=== PATIENT | male | born 1980 | race Caucasian/White ===

== ENCOUNTER 2024-04-25 12:10 | Emergency (ER) | payer SELFPAY ==
[2024-04-25 12:25] VITALS: BP 165/109
[2024-04-25 12:51] LABS: % Basophils 0.6 % (0-2); % Eosinophils 2.6 % (0-6); % Immature Granulocytes 0.5 % (0-0.5); % Monocytes 5.1 % (1.7-9.3); % Neutrophils 68.2 % (42.2-75.2); Absolute Basophils 0.1 10^3/uL (0-0.2); Absolute Eosinophils 0.2 10^3/uL (0-0.7); Absolute Monocytes 0.4 10^3/uL (0.1-0.6); Absolute Neutrophils 5.9 10^3/uL (1.4-6.5); Hematocrit 43.1 % (39.0-52.0); Hemoglobin 15.2 g/dL (13.0-18.0); Mean Corp Hgb Conc. 35.3 g/dL (33.0-37.0); Mean Corpuscular Hgb 30.9 pg (27.0-31.0); Mean Corpuscular Volume 87.6 fL (80.0-94.0); Mean Platelet Volume 10.2 fL (7.4-10.4); Nucleated Red Blood Cells % 0 % (-); Platelet Count 257 10^3/uL (130-400); Red Blood Cell Count 4.92 10^6/uL (4.70-6.10); Red Cell Dist. Width 12.6 % (11.5-14.5); White Blood Cell Count 8.6 10^3/uL (4.8-10.8)
[2024-04-25 13:14] LABS: ALT (SGPT) 28 U/L (0-50); AST (SGOT) 29 U/L (17-59); Albumin 4.5 g/dl (3.5-5.0); Alkaline Phosphatase 80 U/L (38-126); Blood Urea Nitrogen 16 mg/dl (9-20); Calcium 9.4 mg/dl (8.4-10.2); Carbon Dioxide 23 mmol/L (22-30); Chloride 103 mmol/L (98-107); Glucose 112 mg/dl (70-99); Potassium 4.2 mmol/L (3.5-5.1); Sodium 137 mmol/L (135-145); Total Bilirubin 0.7 mg/dl (0.2-1.3); Total Protein 7.2 g/dl (6.3-8.2); eGFR > 60.00
[2024-04-25 13:23] LABS: Troponin I < 0.012 ng/ml
--- NOTE | 2024-04-25 15:27 | ED.GENMED ---
History of Present Illness
General
Chief Complaint: Dizziness
Time Seen by Provider: 04/25/24 15:24
Travel History
Have you had any contact with someone who has COVID-19?: No
Do you have any symptoms of coronavirus? Fever > 100 degrees, chills, cough, shortness of breath, sore throat, loss of taste or smell, muscle aches, or headache?: No
History of Present Illness
History of Present Illness:
43-year-old male presents to the emergency department for evaluation of intermittent periods of lightheadedness and heart palpitations ongoing for the past 2 weeks. He has been checking his blood pressure at home on a daily basis with a wrist cuff
and has been noting numbers of 160/100 or higher. He denies any chest pain or difficulty breathing. Does not routinely seek routine or preventative health care. Does admit to tobacco use heavy social alcohol use. Denies any precocious coronary
artery disease or cardiac to his knowledge. Currently feels well with no complaints
Past History
Past History
ED Past Medical History: Asthma
ED Past Surgical History: None
Social History
Tobacco: Smoker
Alcohol: Occasional
Drug: None
Personal: Single
Living: alone
Review of Systems
Review of Systems
Allergies reviewed?: Yes
All Other Systems: ROS reviewed and negative except as documented in HPI and ROS
Phy Exam
Physical Exam
Physical Exam:
GEN: Well appearing, NAD, WDWN
HEENT: Oral mucosa moist, no scleral icterus
Cardiac: Regular rate and rhythm, no murmurs
Lung: No respiratory distress, no tachypnea, lungs clear to auscultation bilaterally
MSK: No gross deformity or injuries
Skin: Good color, no pallor or jaundice, no rashes
Neuro: AO x3, moves all extremities freely
Psych: Calm, cooperative
Course
Orders/Labs/Results
Orders:
Orders
04/25/24 12:26
Electrocardiogram (*1) Urgent
Reason for Study: Vertigo / Dizzy
EKG- Treatment ONCE
04/25/24 12:38
Complete Blood Count/With Diff Urgent
Comprehensive Metabolic Panel Urgent
Troponin I Urgent
Abnormal Lab Results
04/25/24
12:38
Glucose 112 H mg/dl
(70-99)
04/25/24 12:38
04/25/24 12:38
Vital Signs
Initial and Last Documented VS:
Initial Vital Signs
Temp Pulse Resp BP Pulse Ox
98.0 F 97 18 165/109 99
04/25/24 12:25 04/25/24 12:25 04/25/24 12:25 04/25/24 12:25 04/25/24 12:25
Last Documented Vital Signs
Temp Pulse Resp BP Pulse Ox
98.0 F 97 18 156/113 99
04/25/24 12:25 04/25/24 12:25 04/25/24 12:25 04/25/24 15:41 04/25/24 12:25
MDM/Problems Addressed
MDM/Problems Addressed:
43-year-old male presenting with intermittent dizziness and hypertension. His labs and EKG are unremarkable and there is no evidence for endorgan damage. Patient has no signs or symptoms of stroke. I counseled him extensively on importance of
tobacco and alcohol cessation or at least diminished use to reduce future risk of cardiovascular disease. Given the persistence of his hypertension at home I feel it is likely that he has been hypertensive for some time and we will start him on
amlodipine once daily. He is currently uninsured and I provided him with resources for an [facility] as well as with the family medicine residency clinic for when he is able to establish health insurance. Educated on
importance of medication compliance and lifestyle modifications
*Critical Care Note
Total Time (30-74mins, 75-104mins- exclusive of procedures): Not Applicable
ED Attending Note
-
Portions of this chart may have been created with voice recognition software.� Occasional wrong word or��sound alike� substitutions may have occurred due to the inherent limitations of voice recognition software.
Discharge Plan
Departure
Patient Disposition: Home (Routine Discharge)
Date of Disposition: 04/25/24
Time of Disposition: 15:42
Patient with high blood pressure during this ER visit?: Yes
Discharge Problem:
Uncontrolled hypertension
Instructions: High Blood Pressure ED
Prescriptions:
New
amlodipine 5 mg tablet
5 mg PO DAILY Qty: 30 0RF
Activity Restrictions/Additional Instructions:
I am starting you on blood pressure medication. It is possible this will need to be increased by her primary care physician at a later time if blood pressures not improving
We discussed the importance of quitting tobacco use and decreasing her alcohol use as both of these will cause high blood pressure and can lead to serious outcomes such as heart attack or stroke
Please discuss with your primary care physician medication assisted remedies for quitting tobacco use
[facility] (must have insurance)
[address]
[place] [address]
[phone]
[facility] (if uninsured)
[phone]
[address]
[place] [address]
Discharge Date and Time
Print Language: URDU
[2024-04-25 15:41] VITALS: BP 156/113
== END 2024-04-25 16:18 | disposition home or self-care (01) ==
LOC: EMR 12:10
PROVIDERS: Emergency Medicine; EMERGENCY PHYSICIAN Emergency Medicine
DX: I10 Essential (primary) hypertension (principal); R42 Dizziness and giddiness; R00.2 Palpitations; J45.909 Unspecified asthma, uncomplicated; F17.200 Nicotine dependence, unspecified, uncomplicated
CPT/HCPCS: 99283; 80053; 84484; 85025; 93005

== ENCOUNTER 2024-10-16 20:22 | Inpatient (IN) | payer OTHER, SELFPAY ==
[2024-10-16] VITALS (9 sets, daily range): BP systolic 120–154; BP diastolic 71–97; BMI 25.8
[2024-10-16] MEDS: MAGNESIUM SULFATE 50 IV (17:08)
[2024-10-16] MEDS: SOLU-MEDROL PF 125 MG IV (17:08)
[2024-10-16 17:18] LABS: % Basophils 0.4 % (0-2); % Eosinophils 1.2 % (0-6); % Immature Granulocytes 0.5 % (0-0.5); % Lymphocytes 4.7 % (20.5-51.1); % Monocytes 5.5 % (1.7-9.3); % Neutrophils 87.7 % (42.2-75.2); Absolute Basophils 0.1 10^3/uL (0-0.2); Absolute Eosinophils 0.2 10^3/uL (0-0.7); Absolute Immature Granulocytes 0.1 10^3/uL (0-0.05); Absolute Lymphocytes 0.6 10^3/uL (1.2-3.4); Absolute Monocytes 0.7 10^3/uL (0.1-0.6); Absolute Neutrophils 10.8 10^3/uL (1.4-6.5); Hematocrit 42.8 % (39.0-52.0); Hemoglobin 14.3 g/dL (13.0-18.0); Mean Corp Hgb Conc. 33.4 g/dL (33.0-37.0); Mean Corpuscular Volume 89.9 fL (80.0-94.0); Mean Platelet Volume 10.6 fL (7.4-10.4); Nucleated Red Blood Cells % 0 % (-); Platelet Count 222 10^3/uL (130-400); Red Blood Cell Count 4.76 10^6/uL (4.70-6.10); Red Cell Dist. Width 12.1 % (11.5-14.5); White Blood Cell Count 12.3 10^3/uL (4.8-10.8)
[2024-10-16 17:27] LABS: ALT (SGPT) 31 U/L (0-50); AST (SGOT) 24 U/L (17-59); Albumin 4.9 g/dl (3.5-5.0); Alkaline Phosphatase 102 U/L (38-126); Blood Urea Nitrogen 15 mg/dl (9-20); Calcium 9.2 mg/dl (8.4-10.2); Carbon Dioxide 24 mmol/L (22-30); Chloride 101 mmol/L (98-107); Estimated Creatinine Clearance > 125 ml/min; Glucose 139 mg/dl (70-99); Potassium 3.4 mmol/L (3.5-5.1); Sodium 143 mmol/L (135-145); Total Bilirubin 0.5 mg/dl (0.2-1.3); Total Protein 7.6 g/dl (6.3-8.2); eGFR > 60.00
[2024-10-16 17:28] LABS: COVID-19 Antigen Negative (Negative)
--- NOTE | 2024-10-16 17:28 | ED.GENMED ---
History of Present Illness
General
Chief Complaint: Breathing Problem
Time Seen by Provider: 10/16/24 16:56
History of Present Illness
History of Present Illness:
43-year-old male with history of asthma presenting to the emergency department for cough and shortness of breath. Patient reports symptoms started yesterday. He tried using his inhaler without significant improvement. Cough has been productive,
does note sick contacts at home, everyone at home has similar cough. Denies any admissions or intubations for his asthma. Per medics, patient was hypoxic, arrived hypoxic to the high 80s on arrival. Denies associated chest pain. Denies any
fever. Denies abdominal pain or GI symptoms. Denies additional acute medical complaints.
Past History
Past History
ED Past Medical History: Asthma
ED Past Surgical History: None
Social History
Tobacco: Smoker
Alcohol: Occasional
Drug: None
Personal: Single
Living: alone
Phy Exam
Physical Exam
Physical Exam:
General: Mild respiratory distress
HEENT: protecting airway
Neck: appears supple
CV: Tachycardic, regular rhythm, no evidence of cyanosis
Resp: Mild increased work of breathing, adequate air movement bilaterally with end expiratory wheezing
Abd: No distention
Extremities: No deformities, no swelling, no erythema, pulses and sensation intact
Neuro: alert, no focal neurologic deficit
: deferred
Rectal: deferred
Psych: Normal affect
Skin: Intact
Course
Orders/Labs/Results
Orders:
Orders
10/16/24 Breakfast
Cholesterol Lowering
Cholesterol Lowering: Sodium, 2 Gram
10/16/24 17:00
Magnesium Sulfate 2 Gram/50 ml [Magnesium Sulfate] 2 gram in 50 ml IV NOW
MethylPREDNISolone PF [Solu-Medrol Pf] 125 mg IV NOW STA
CR Chest - 2 Views Urgent
Comment:
Reason For Exam: asthma
10/16/24 17:01
INT (Intravenous Needle Therapy) As Directed
Comment: Insert and maintain 2 IV access sites
10/16/24 17:05
COVID-19 Antigen Urgent
Source: Nasal Swab
Complete Blood Count/With Diff Urgent
Comprehensive Metabolic Panel Urgent
Influenza A+B Rapid Molecular Urgent
ROLAN Source: Nasal Swab
Specimen Description:
10/16/24 17:32
Ipratropium/Albuterol Sulfate [Duoneb] 3 ml INH R NOW STA
10/16/24 19:34
Potassium Chloride 10% Elixir [KCl Elixir] 40 meq PO NOW STA
10/16/24 19:39
Admit/Transfer Patient As Directed
Co-Sign Provider:
Level of Care: Inpatient admission
Assign to:: IMU- Intermediate Care
Physician / Group: finesse
Diagnosis: asthma exacerbation
Reason for Hospitalization: asthma exacerbation
Expected length of stay greater than two midnights?: Yes
ELOS- Estimated Length of Stay in days: 3
I certify the patient meets the requirements for IP care: Yes
PRN Pain Medication Management As Directed
May give lesser potent ordered pain med per pt: Yes
preference::
Protocol:: Medication orders for pain may be administered in a
manner that supports deferring to patient preference
when the pt is:
- Requesting an ordered lesser potent pain medication.
Least to most potent pain medications are defined
as: acetaminophen < NSAID < tramadol < opioids
(morphine, oxycodone, hydromorphone).
- Requesting a lesser dose of the same medication IF
ORDERED.
- Requesting a less intrusive route of administration
if both routes are prescribed by the provider (PO <
IV).
10/16/24 19:40
Code Status As Directed
Resuscitation Status: Full Code
10/16/24 20:05
Ipratropium/Albuterol Sulfate [Duoneb] 3 ml INH R NOW ONE
PRN Pain Medication Management As Directed
May give lesser potent ordered pain med per pt: Yes
preference::
Protocol:: Medication orders for pain may be administered in a
manner that supports deferring to patient preference
when the pt is:
- Requesting an ordered lesser potent pain medication.
Least to most potent pain medications are defined
as: acetaminophen < NSAID < tramadol < opioids
(morphine, oxycodone, hydromorphone).
- Requesting a lesser dose of the same medication IF
ORDERED.
- Requesting a less intrusive route of administration
if both routes are prescribed by the provider (PO <
IV).
10/16/24 20:08
Ipratropium/Albuterol Sulfate [Duoneb] 3 ml .ROUTE .STK-MED ONE
10/16/24 20:59
Acetaminophen [Tylenol] 650 mg PO Q4HPRN PRN
Alprazolam [Xanax] 0.25 mg PO TIDPRN PRN
Guaifenesin [Mucinex] 600 mg PO Q12
Ipratropium/Albuterol Sulfate [Duoneb] 3 ml INH R Q4HPRN PRN
Ipratropium/Albuterol Sulfate [Duoneb] 3 ml INH R QID
10/16/24 20:59
Respiratory Culture/Gram Stain Routine
ROLAN Source: Sputum
Specimen Description:
Activity As Directed
Activity Level: As Tolerated
Intake/ Output As Directed
Frequency: Per unit guidelines
Vital Signs As Directed
Frequency: Per unit guidelines
Copd Education [RESP] Routine
O2 Therapy [RESP] Routine
Titrate/Wean O2 to maintain O2 sat greater than (%): 95
Special Instructions: adjust, if necessary, to avoid hyperoxia in CO2 retainers.
Use High Flow O2 if necessary
DX Deep Vein Thrombosis Video Routine
10/16/24 22:00
Amlodipine [Norvasc] 10 mg PO HS
Escitalopram Oxalate [Lexapro] 10 mg PO HS
Olmesartan Medoxomil [Benicar] 5 mg PO HS
10/17/24 00:00
Dexamethasone Sod Phosphate [Decadron] 4 mg IV Q6H
10/17/24 06:00
Basic Metabolic Panel IN AM
Complete Blood Count/With Diff IN AM
10/17/24 18:00
Enoxaparin Sodium [Lovenox] 40 mg SC QPM
10/18/24 06:00
Basic Metabolic Panel IN AM
Complete Blood Count/With Diff IN AM
10/19/24 06:00
Basic Metabolic Panel IN AM
Complete Blood Count/With Diff IN AM
10/20/24 06:00
Complete Blood Count/With Diff IN AM
Abnormal Lab Results
10/16/24
17:05
WBC 12.3 H 10^3/uL
(4.8-10.8)
MPV 10.6 H fL
(7.4-10.4)
Abs Immat Gran (auto) 0.1 H 10^3/uL
(0-0.05)
Absolute Neuts (auto) 10.8 H 10^3/uL
(1.4-6.5)
Absolute Lymphs (auto) 0.6 L 10^3/uL
(1.2-3.4)
Absolute Monos (auto) 0.7 H 10^3/uL
(0.1-0.6)
Neutrophils % 87.7 H %
(42.2-75.2)
Lymphocytes % 4.7 L %
(20.5-51.1)
Potassium 3.4 L mmol/L
(3.5-5.1)
Glucose 139 H mg/dl
(70-99)
10/16/24 17:05
10/16/24 17:05
Vital Signs
Initial and Last Documented VS:
Initial Vital Signs
BP
128/82
10/16/24 16:52
Last Documented Vital Signs
Temp Pulse Resp BP Pulse Ox
98.8 F 91 21 151/90 96
10/16/24 16:53 10/16/24 20:15 10/16/24 20:15 10/16/24 20:00 10/16/24 20:15
MDM/Problems Addressed
MDM/Problems Addressed:
43-year-old male with history of asthma presenting for cough and wheezing, onset of symptoms yesterday. Vital signs on arrival significant for tachycardia and hypoxia.
On exam, patient in mild respiratory distress with mild increased work of breathing. Symptoms appear consistent with acute asthma exacerbation, likely triggered from viral versus bacterial pulmonary infection. PE is a consideration given
presenting vital signs, however less suspicious given known history of asthma with presenting wheezing. Will treat patient with DuoNeb, steroids, magnesium. Will obtain chest x-ray imaging and reassess for improvement. Will also send viral swabs
18:30 -workup is grossly unremarkable. No sign of pneumonia. Viral swabs are negative. Patient does note symptom improvement, however is still feeling short of breath. Stable on nasal cannula, however when nasal cannula removed, does have
desaturation. At this time feel patient warrants admission for acute asthma exacerbation.
*Critical Care Note
Total Time (30-74mins, 75-104mins- exclusive of procedures): Not Applicable
ED Attending Note
-
Portions of this chart may have been created with voice recognition software.� Occasional wrong word or��sound alike� substitutions may have occurred due to the inherent limitations of voice recognition software.
Discharge Plan
Departure
Patient Disposition: Admit
Date of Disposition: 10/16/24
Time of Disposition: 19:18
Presentation/result/management discussed w/ accepting MD/DO: Hospitalist
Patient with high blood pressure during this ER visit?: No
Condition: Fair
Discharge Problem:
Asthma exacerbation, Hypoxia
Interventions
Interventions:
*Risk Screen - Suicide Last Done: 10/16/24 16:53
*General Assessment Last Done: 10/16/24 16:53
*Neglect/Abuse Screening Last Done: 10/16/24 16:53
ED- Fall Risk Assessment Last Done: 10/16/24 20:53
*ED COVID-19 Vaccine History Last Done: 10/16/24 17:15
*Nursing Disposition Last Done: 10/16/24 20:53
ED- Cardiac Assessment Last Done: 10/16/24 17:15
ED- Pulmonary Assessment Last Done: 10/16/24 17:15
Discharge Date and Time
Discharge Date/Time: 10/16/24 20:54
[2024-10-16] MEDS: DUONEB 3 ML INH ×3 (17:37→23:35)
--- NOTE | 2024-10-16 19:22 | HPS.HSE ---
Family Physician
-
Family Physician: Hai Mcdaniel
Chief Complaint
-
Short of breath
History of Present Illness
43-year-old male with history of asthma hypertension, anxiety presenting to the emergency department for cough and shortness of breath. Patient noted sore throat yesterday. Today he had cough with productive white sputum and short of breath which
was worse with exertion .He tried using his inhaler without significant improvement. denied any fever, chills, chest pain. Patient denied any headache, dizziness, syncopal episode. Patient denied dysuria hematuria. Denies any admissions or
intubations for his asthma.
upon arrival he was hypoxic, requiring 3l of oxygen. received iv solu Medrol, nebs .admitting for further management.
Medical History
Past Medical History
Past Medical History: Reports Other
Additional Past Medical History:
asthma
HTn
anixiety
Past Surgical History: Reports None
Social History
Tobacco: Former Smoker
Alcohol: Occasional
Drug: None
Personal:
Living: With Family
Family History
Family History: Not pertinent
Allergies / Home Medications
Allergies reflects when Allergies were last updated in [facility].
Home Medications with original date entered in [facility]
Allergy/Medication List:
Allergies
Allergy/AdvReac Type Severity Reaction Status Date / Time
No Known Allergies Allergy Verified 10/16/24 16:53
Home Medications
albuterol sulfate 90 mcg/actuation aerosol inhaler 2 puff inhalation R Q4HPRN PRN sob 10/16/24
alprazolam 0.25 mg tablet 0.25 mg PO TIDPRN PRN anxiety 10/16/24
amlodipine 10 mg tablet 10 mg PO HS 10/16/24
escitalopram oxalate 10 mg tablet 10 mg PO HS 10/16/24
olmesartan 5 mg tablet 5 mg PO HS 10/16/24
Review of Systems
-
Constitutional: Reports No Symptoms
EENT: Reports No Symptoms and Sore Throat
Respiratory: Reports Cough and Trouble Breathing
Cardiac: Reports No Symptoms
Abdomen/GI: Reports No Symptoms
: Reports No Symptoms
Musculoskeletal: Reports No Symptoms
Skin: Reports No Symptoms
Neurological: Reports No Symptoms
Endocrine: Reports No Symptoms
Hematologic/Lymphatic: Reports No Symptoms
Psych: Reports No Symptoms
Physical Exam
Vital Signs
Vital Signs
Temp Pulse Resp BP Pulse Ox
98.8 F 113 13 120/76 93
10/16/24 16:53 10/16/24 18:30 10/16/24 18:30 10/16/24 18:00 10/16/24 18:30
Physical Exam
General: Well Developed, Well Nourished and No Apparent Distress
HEENT: NormoCephalic, Moist mucous membranes and Atraumatic
Respiratory: Wheezes
Cardiac: S1/S2 and Regular Rhythm; No Murmur or Rub
GI: Soft, Non Tender, Non Distended and Normal Bowel Sounds; No Organomegaly
Rectal: Deferred by Provider
Musculoskeletal: No Clubbing, No Cyanosis and No Edema
Skin: No Rash
Neuro: AO x 3 and Nonfocal/grossly intact
Psych: Calm
Laboratory Results
-
10/16/24 17:05
10/16/24 17:05
Laboratory Results
Total Bilirubin 0.5 mg/dl (0.2-1.3) 10/16/24 17:05
AST 24 U/L (17-59) 10/16/24 17:05
ALT 31 U/L (0-50) 10/16/24 17:05
Alkaline Phosphatase 102 U/L (38-126) 10/16/24 17:05
Data Reviewed
-
Diagnostic Radiology: Report Reviewed by me
Lab Data: Labs Reviewed by me
Impression/Plan
-
# Short of breath/cough acute hypoxia/likely COPD exacerbation asthma
-COVID-negative
-Chest x-ray mild bilateral lung hyperinflation consistent with reactive airways disease (asthma).
2. No radiographic evidence for pneumonia.
3. Previous ORIF of a right midclavicular fracture.
-Continue supplemental oxygen to keep sat greater than 92
-Wean as tolerated, nebs as needed for short of breath and wheezing
-Received Solu-Medrol in ER
-Decadron q6
-Mucinex
# Leukocytosis likely stress raction
-WBC 12.3, patient is afebrile
-ctm
# Hypokalemia
-K3.4
-Supplemented with oral KCl
-Monitor BMP in a.m.
# Anxiety
-Xanax, escitalopram continued
# Essential hypertension
-Norvasc and olmesartan continued with hold parameters
# DVT prophylaxis
-Lovenox SQ
# CODE STATUS
-Full code
[2024-10-16] MEDS: KCL ELIXIR 40 MEQ PO (19:41)
--- NOTE | 2024-10-16 20:14 | W.PN.UPDATE ---
Update Note
Progress Note Update
This is an addendum to the H&P written by Tiffany Rivera on 10/16/2024.
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
43-year-old male past medical history of asthma, anxiety, hypertension, presenting with sore throat yesterday, significant productive cough and shortness of breath. Bilateral wheezing bilaterally. He has had multiple sick contacts recently with
cough patient requiring 6 L of oxygen at this time. Chest x-ray shows mild hyperinflation consistent with active airway disease. Likely virus induced asthmatic bronchitis. Magnesium given. DuoNebs, dexamethasone, mucinex.
[2024-10-16] MEDS: DUONEB INH (21:16)
--- NOTE | 2024-10-16 21:36 | PTCARENOTE ---
Received Pt from ED. Pt on 6L NC SPO2 88-90%. Requested RT to bedside to try MID flow. Pt on 8L MID flow SPO2 93% RR 24. Pt has no concerns at this time. Education given on using call kilpatrick for help and not getting up on his own, Pt agreeable at this
time. Call kilpatrick within reach.
[2024-10-16] MEDS: MUCINEX 600 MG PO (22:34)
[2024-10-16] MEDS: LEXAPRO 10 MG PO (22:34)
[2024-10-16] MEDS: BENICAR 5 MG PO (22:36)
[2024-10-16] MEDS: NORVASC 10 MG PO (22:36)
[2024-10-16] MEDS: DECADRON 4 MG IV (23:11)
[2024-10-17] VITALS (13 sets, daily range): BP systolic 103–140; BP diastolic 46–87; BMI 25.5
--- NOTE | 2024-10-17 01:47 | PTCARENOTE ---
Pt having increased oxygen need, MID flow now to 10L SPO2 92%-94% RR 24-26. Contacted RT, Per O2 order Pt placed on High FLOW 50L/50. Pt SPO2 now 96% RR 18-20. Pt having inspiratory and expiratory wheezing, PRN Nebs continued. Education given to
patient.
[2024-10-17] MEDS: DUONEB 3 ML INH ×5 (03:49→19:17)
[2024-10-17] MEDS: DECADRON 4 MG IV ×3 (05:24→17:53)
[2024-10-17 05:29] LABS: % Basophils 0.1 % (0-2); % Eosinophils 0.1 % (0-6); % Immature Granulocytes 0.3 % (0-0.5); % Lymphocytes 6.1 % (20.5-51.1); % Monocytes 1.1 % (1.7-9.3); % Neutrophils 92.3 % (42.2-75.2); Absolute Lymphocytes 0.5 10^3/uL (1.2-3.4); Absolute Monocytes 0.1 10^3/uL (0.1-0.6); Absolute Neutrophils 6.9 10^3/uL (1.4-6.5); Hematocrit 41.2 % (39.0-52.0); Hemoglobin 13.7 g/dL (13.0-18.0); Mean Corp Hgb Conc. 33.3 g/dL (33.0-37.0); Mean Corpuscular Hgb 29.9 pg (27.0-31.0); Mean Platelet Volume 10.6 fL (7.4-10.4); Nucleated Red Blood Cells % 0 % (-); Platelet Count 215 10^3/uL (130-400); Red Blood Cell Count 4.58 10^6/uL (4.70-6.10); Red Cell Dist. Width 12.3 % (11.5-14.5); White Blood Cell Count 7.5 10^3/uL (4.8-10.8)
[2024-10-17 05:49] LABS: Blood Urea Nitrogen 20 mg/dl (9-20); Calcium 9.5 mg/dl (8.4-10.2); Carbon Dioxide 21 mmol/L (22-30); Chloride 106 mmol/L (98-107); Estimated Creatinine Clearance > 125 ml/min; Glucose 148 mg/dl (70-99); Magnesium 2.3 mg/dl (1.6-2.3); Potassium 4.4 mmol/L (3.5-5.1); Sodium 141 mmol/L (135-145); eGFR > 60.00
[2024-10-17] MEDS: MUCINEX 600 MG PO ×2 (09:06→20:27)
--- NOTE | 2024-10-17 10:38 | CON.PUL ---
Consultation
Consultation Request
Date/Time Consultation Requested: 10/17/24
Date/Time Consultation Performed: 10/17/24
Performing Provider: Tessie
Reason for Consultation: SOB/hypoxemia
Medical History
-
History of Present Illness:
Patient is a 43-year-old male with history of childhood asthma, smoker, hypertension, anxiety presenting to the emergency department for cough and shortness of breath. He feels this may have been trigged by a URI in the past week, with associated
sore throat, productive white sputum. He tried using his inhaler without significant improvement. Upon arrival to ER, he was notably hypoxic, requiring 3L of oxygen. Received IV Solu Medrol, neb treatments. Worsening O2 noted, and escalated to
HFNC, he is admitted to IMU. CXR clear.
Never diagnosed with any new lung disease, he generally had been using his albuterol for asthma sparingly. Quit smoking 1 year ago and had noticed his breathing was better. Total usage was about 25 years at 1PPD. He denies family history of lung
disease.
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
Of note, he fell last year and had a clavicle fracture and traumatic pneumothorax for which he was transferred to [facility] as a trauma eval. He eventually had chest tube placed and underwent clavicle repair with plate/screws. His PTX resolved and chest
tube was removed. No issues since then following that discharge.
Past Medical History
Past Medical History: Other (see list below)
Social History
Tobacco: Smoker
Alcohol: None
Drug: None
Family History
Family History: Reviewed & Not Pertinent
Allergies / Home Medications
Allergies
Allergy/AdvReac Type Severity Reaction Status Date / Time
No Known Allergies Allergy Verified 10/16/24 16:53
Home Medications
�Medication �Instructions �Recorded �Confirmed �Last Taken �Type
albuterol sulfate 90 mcg/actuation 2 puff inhalation R Q4HPRN PRN sob 10/16/24 10/16/24 Unknown History
aerosol inhaler
alprazolam 0.25 mg tablet 0.25 mg PO TIDPRN PRN anxiety 10/16/24 10/16/24 10/16/24 History
amlodipine 10 mg tablet 10 mg PO HS Blood Pressure 10/16/24 10/16/24 10/15/24 History
escitalopram oxalate 10 mg tablet 10 mg PO HS Mental Health/Anxiety 10/16/24 10/16/24 10/15/24 History
olmesartan 5 mg tablet 5 mg PO HS Blood Pressure 10/16/24 10/16/24 10/15/24 History
Review of Systems
-
History Source: Patient
All other systems: Negative unless noted
Vitals / Labs / Diagnostic Testing
Vital Signs
Temp Pulse Resp BP Pulse Ox
97.3 F 69 16 103/62 93
10/17/24 07:40 10/17/24 08:00 10/17/24 08:00 10/17/24 08:00 10/17/24 09:43
Lab Data
10/17/24 05:12
10/17/24 05:12
Microbiology
10/16/24 23:23 Sputum Gram Stain - Preliminary
10/16/24 17:05 Nasal Swab Influenza Types A & B (JAKY) - Final
Negative for Influenza A & B, NAAT
Negative results must be combined with clinical observations
and patient history.
Nucleic Acid Amplification test (NAAT)performed on the
[employer] platform.
Diagnostic Testing:
Physical Exam
-
HEENT: Normocephalic, Anicteric and Moist Mucous Membranes
Cardiovascular: S1/S2 and Regular Rhythm
Respiratory: Non-Labored Respirations and Other (obstructed, unable to exhale without coughing, very poor air movement)
GI: Soft, Non Distended and Non Tender
Neurology: Awake, Alert, Oriented and No Motor Deficits
Skin: Warm, Dry and Good Color
General: Comfortable and Other (NAD)
Assessment
-
Patient is a 43-year-old male with history of childhood asthma, smoker, hypertension, anxiety presenting to the emergency department for cough and shortness of breath. He feels this may have been trigged by a URI in the past week, with associated
sore throat, productive white sputum. He tried using his inhaler without significant improvement. Upon arrival to ER, he was notably hypoxic, requiring 3L of oxygen. Received IV Solu Medrol, neb treatments. Worsening O2 noted, and escalated to
HFNC, he is admitted to IMU. CXR clear. We are consulted for evaluation 10/17/24.
Acute hypoxic respiratory failure
Recent URI, COVID neg
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
Current smoker, 1 PPD for 25+ years, quit 1 year ago
Leukocytosis
Hypokalemia
Conditions
Childhood asthma
HTN
Anxiety
Traumatic PTX s/p fall 06/2023 s/p chest tube at [facility]
Fractured clavicle s/p repair plate/screws
Plan
Hypoxemia noted on arrival, placed on HFNC but reduced this AM to 40LPM/40%
Can likely transition to midflow today
No oxygen history noted at home
Home O2 evaluation eventually
Prior history of lung disease is noted including including childhood asthma but this appears to be consistently active most of his life/on and off use of albuterol
Never diagnosed with any new lung disease, he generally had been using his albuterol for asthma sparingly.
Quit smoking 1 year ago and had noticed his breathing was better. Total usage was about 25 years at 1PPD. He denies family history of lung disease.
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
No prior PFTs for review
Of note, he fell last year and had a clavicle fracture and traumatic pneumothorax for which he was transferred to [facility] as a trauma eval.
He eventually had chest tube placed and underwent clavicle repair with plate/screws. His PTX resolved and chest tube was removed.
No issues since then following that discharge.
Suspect patient has AECOPD/ possible ACOS
CXR obtained indicating no acute findings, but will follow up with CTA to evaluate hypoxemia
Other imaging reviewed, prior CT
Will obtain PFT complete in department, order placed
He is on IV steroids, and QID nebs
Eventually will need home inhaler regiment/COPD education
No prior ECHO results are available for review
If CT and PFT not indicative of hypoxemia, will check ECHO
Smoking history noted
Smoking cessation, he has quit 1 year ago
Will likely need LDCT screening at age 51, as he still will be within the 15 year quit period
Will need outpatient pulmonary evaluation in our office for PFTs and 6MWT
Reviewed with patient
We will arrange at time of discharge
We will follow
Diagnostic Data
Chest X-Ray: 10/16/24-1. Mild bilateral lung hyperinflation consistent with reactive airways disease (asthma).
2. No radiographic evidence for pneumonia.
3. Previous ORIF of a right midclavicular fracture.
CT Scan: CAP 07/10/23- 1. Moderate to large right hydropneumothorax.
2. Comminuted fracture of the right clavicle.
3. Nondisplaced lateral right third, fourth and fifth rib fractures.
4. No acute process in the abdomen or pelvis.
Echo:
PFT's:
Reports and relevant images were personally reviewed.
Total time spent on this consultation __76__ includes review of history, physical exam, medications, laboratory data, personal review of imaging, extensive review of outpatient records, discussion with care team and respiratory therapy.
--- NOTE | 2024-10-17 13:42 | W.PN.HOSP.TC ---
Today's Communication/Plan
-
see note
Assessment / Plan
Assessment / Plan
1. Acute hypoxic respiratory failure
Asthma flare up
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
-Chest x-ray reviewed and relatively clear
-COVID/flu negative
-Maintain on IV Decadron/nebulizer therapy
-Discussed with pulmonology, ordering CT chest PE to rule out any underlying VTE
-wean off o2 to midflow
2. History of Right traumatic pneumothorax
History of right clavicular fracture
-Last year patient had a fall with right clavicular fracture causing right-sided knee with
-Was transferred to [facility] trauma center and had CT tube in place
-No reported problems after discharge
3. Essential hypertension
-Maintain on olmesartan/Norvasc
4. Former smoker
-Patient have a [id number] smoking history
-will require pulm f/u and age appropriate lung cancer screening once age 51.
5. Anxiety
- maintain on prn xanax
Lovenox
Full code
Total time spent : 52 mins
I personally saw and examined the patient.
I have reviewed all diagnostic interpretations and treatment plans as written.
Time includes patient management by me, time spent at the patients bedside, time to review lab and imaging results, discussing patient care, documentation in the medical record, and time spent with the family or caregiver and discussing care plan
with RN/Consultants.
Anticipated Discharge: > 48 hours
Subjective/Interval History
-
Date of Service: October 17, 2024
remains on o2 through high flow, wean off as possible
no other complains of chest pain/abd pain/nausea/vomiting
Objective Data
-
Labs:
Laboratory Results
10/17/24
05:12
WBC 7.5
Hgb 13.7
Hct 41.2
Plt Count 215
Sodium 141
Potassium 4.4 D
Chloride 106
Carbon Dioxide 21 L
BUN 20
Creatinine 0.7
Glucose 148 H
Calcium 9.5
Vital Signs:
Vital Signs
Temp Pulse Resp BP Pulse Ox
97.3 F 69 16 103/62 93
10/17/24 07:40 10/17/24 08:00 10/17/24 08:00 10/17/24 08:00 10/17/24 09:43
I&O
10/16/24 10/17/24 10/18/24
06:59 06:59 06:59
Intake Total 200 / 200
Balance 200 / 200
Review of Systems
-
Respiratory: Reports Cough, Trouble Breathing and Wheezing
Cardiac: Reports No Symptoms
Abdomen/GI: Reports No Symptoms
Physical Exam
-
General: No Apparent Distress and Comfortable
HEENT: Negative Oxygen
Respiratory: Wheezes and Decreased Breath Sounds
Cardiac: Regular Rhythm and S1/S2; Negative Murmur or Rub
GI: Soft, Nontender, Nondistended and Normal Bowel Sounds
Musculoskeletal: No Edema
Neuro: Awake, Alert, Oriented, No Motor Deficits and Nonfocal/Grossly Intact
Psych: Calm
--- NOTE | 2024-10-17 14:49 | PTCARENOTE ---
Pt transitioned off of HFNC to MFNC by RT. Tolerating well with sats in the low 90's. Pt for chest CT, spoke with department who state they will call when ready for pt. Pt updated on plan of care.
--- NOTE | 2024-10-17 16:11 | CM ---
CM met with pt bedside
Pt resides with his mother in a 2SH with 1 [address]
Full flight to 2nd floor
Pt is independent with his ADLs- no AD
Only DME at home is working nebulizer
Denies financial insecurities
PCP- Violeta marie- pt noted he believes he is followed [facility], name unknown
rx- Jillian Pollock
Discharge Disposition- home, follow O2 needs
--- NOTE | 2024-10-17 16:46 | PTCARENOTE ---
Pt with episode of tachycardia when OOB in the bathroom. Rates to 140's. Pt asymptomatic but admits to feeling anxiety. Assisted back to bed. EKG obtained, rhythm broke by the time EKG was captured. Dr. Guerrero notified via TT. Pt NSR in the 90's at
this time.
[2024-10-17] MEDS: LOVENOX 40 MG SC (17:53)
[2024-10-17] MEDS: XANAX 0.25 MG PO (21:08)
[2024-10-17] MEDS: LEXAPRO 10 MG PO (22:36)
[2024-10-17] MEDS: BENICAR 5 MG PO (22:37)
[2024-10-17] MEDS: NORVASC 10 MG PO (22:38)
--- NOTE | 2024-10-17 23:29 | PTCARENOTE ---
Pt received from previous RN. Pt AAOx3. Significant other at bedside. Pt on 12L midflow 02. Sats 93-94% while resting. HR 98. Pt does admit to increase in dyspnea on exertion/with activity, and increase in HR assessed by RN with ambulation. Pt
educated upon necessity of not ambulating by himself at this time due to increase in demand for oxygen from his baseline. Pt receptive and agreeable. Pt transported in bed to ED CT by this RN. Pt tolerated transport. Pt does express some feelings of
anxiety this HS. PRN Xanax administered. Which appeared to provide Pt with some Relief of correlated symptoms. Assessment as documented. Call light in reach.
[2024-10-18] VITALS (12 sets, daily range): BP systolic 98–148; BP diastolic 65–93
[2024-10-18] MEDS: DECADRON 4 MG IV ×3 (00:05→12:52)
[2024-10-18 06:40] LABS: % Basophils 0.1 % (0-2); % Immature Granulocytes 0.6 % (0-0.5); % Lymphocytes 3.9 % (20.5-51.1); % Monocytes 3.7 % (1.7-9.3); % Neutrophils 91.7 % (42.2-75.2); Absolute Immature Granulocytes 0.1 10^3/uL (0-0.05); Absolute Lymphocytes 0.7 10^3/uL (1.2-3.4); Absolute Monocytes 0.7 10^3/uL (0.1-0.6); Absolute Neutrophils 17.3 10^3/uL (1.4-6.5); Hematocrit 42.6 % (39.0-52.0); Hemoglobin 14.3 g/dL (13.0-18.0); Mean Corp Hgb Conc. 33.6 g/dL (33.0-37.0); Mean Corpuscular Hgb 30.6 pg (27.0-31.0); Mean Platelet Volume 11.2 fL (7.4-10.4); Nucleated Red Blood Cells % 0 % (-); Platelet Count 259 10^3/uL (130-400); Red Blood Cell Count 4.68 10^6/uL (4.70-6.10); Red Cell Dist. Width 12.6 % (11.5-14.5); White Blood Cell Count 18.8 10^3/uL (4.8-10.8)
[2024-10-18 06:44] LABS: Blood Urea Nitrogen 24 mg/dl (9-20); Calcium 9.4 mg/dl (8.4-10.2); Carbon Dioxide 24 mmol/L (22-30); Chloride 103 mmol/L (98-107); Estimated Creatinine Clearance > 125 ml/min; Glucose 125 mg/dl (70-99); Potassium 4.9 mmol/L (3.5-5.1); Sodium 141 mmol/L (135-145); eGFR > 60.00
[2024-10-18] MEDS: DUONEB 3 ML INH ×3 (07:20→15:16)
--- NOTE | 2024-10-18 09:28 | W.PN.PUL3 ---
Today's Communication / Plan
-
PFT reviewed, likely has ACOS
Continue steroids, will add inhalers to take at discharge, COPD education
Encouraged ambulation, IS
Wean O2 to off
Reviewed OP FU eventually
Assessment
-
Patient is a 43-year-old male with history of childhood asthma, smoker, hypertension, anxiety presenting to the emergency department for cough and shortness of breath. He feels this may have been trigged by a URI in the past week, with associated
sore throat, productive white sputum. He tried using his inhaler without significant improvement. Upon arrival to ER, he was notably hypoxic, requiring 3L of oxygen. Received IV Solu Medrol, neb treatments. Worsening O2 noted, and escalated to
HFNC, he is admitted to IMU. CXR clear. We are consulted for evaluation 10/17/24.
Acute hypoxic respiratory failure
Recent URI, COVID neg
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
Current smoker, 1 PPD for 25+ years, quit 1 year ago
Leukocytosis
Hypokalemia
LLL atelectasis on CT
Conditions
Childhood asthma
HTN
Anxiety
Traumatic PTX s/p fall 06/2023 s/p chest tube at [facility]
Fractured clavicle s/p repair plate/screws
Plan
Hypoxemia noted on arrival, placed on HFNC initially, has transitioned to NC
Currently on 5L and weaning down
Home O2 evaluation eventually
Prior history of lung disease is noted including including childhood asthma but this appears to be consistently active most of his life/on and off use of albuterol
Never diagnosed with any new lung disease, he generally had been using his albuterol for asthma sparingly.
Quit smoking 1 year ago and had noticed his breathing was better. Total usage was about 25 years at 1PPD. He denies family history of lung disease.
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
No prior PFTs for review
Of note, he fell last year and had a clavicle fracture and traumatic pneumothorax for which he was transferred to [facility] as a trauma eval.
He eventually had chest tube placed and underwent clavicle repair with plate/screws. His PTX resolved and chest tube was removed.
No issues since then following that discharge.
Suspect patient has AECOPD/ possible ACOS
CXR obtained indicating no acute findings, CTA neg for PE/LLL atelectasis noted
Other imaging reviewed, prior CT
He is on IV steroids, and QID nebs
PFT showing severe obstructive lung disease/moderate restriction which I reviewed with patient
Will initiate inhaler therapy to continue at home
DLCO demonstrates adequate oxygenation and likely will not need O2
No prior ECHO results are available for review
If hypoxemia not resolved, will check ECHO
Smoking history noted
Smoking cessation, he has quit 1 year ago
Will likely need LDCT screening at age 51, as he still will be within the 15 year quit period
Will need outpatient pulmonary evaluation in our office for PFTs and 6MWT
Reviewed with patient
We will arrange at time of discharge
Diagnostic Data
Chest X-Ray: 10/16/24-1. Mild bilateral lung hyperinflation consistent with reactive airways disease (asthma).
2. No radiographic evidence for pneumonia.
3. Previous ORIF of a right midclavicular fracture.
CT Scan: CAP 07/10/23- 1. Moderate to large right hydropneumothorax.
2. Comminuted fracture of the right clavicle.
3. Nondisplaced lateral right third, fourth and fifth rib fractures.
4. No acute process in the abdomen or pelvis.
CT Chest 10/17/24- 1. No CTA evidence for an acute pulmonary thromboembolism.
2. Lobar collapse/atelectasis involving the majority of the left lower lobe.
Echo:
PFT's: FEV1 1.75 L 45%, FVC 3.07 L 64%, ratio 57. Positive BD response in FVC and FEV1. TLC 4.37 L 65%, DLCO 62% -severe obstruction, moderate restriction, mild diffusion impairment
Reports and relevant images were personally reviewed.
Total time spent on this encounter __54__ includes review of history, physical exam, medications, laboratory data, personal review of imaging, extensive review of outpatient records, discussion with care team and respiratory therapy.
Subjective Data
-
Date of Service:
Date of Service: October 18, 2024
Chief Complaint: Pulmonary Follow Up
Subjective:
No acute events ON, remains on supplemental o2
Was able to wean off high flow to 5L NC
Feeling better today
Objective Data
Data Reviewed
Vital Signs / I&O / Oxygen:
Vital Signs
Temp Pulse Resp BP Pulse Ox
97.6 F 89 18 112/74 94
10/18/24 07:00 10/18/24 07:23 10/18/24 07:23 10/18/24 06:00 10/18/24 07:23
Intake and Output
10/17/24 10/18/24 10/19/24
06:59 06:59 06:59
Intake Total 200 / 200
Balance 200 / 200
SaO2 94
Nasal Cannula flow liters per 40
minute
Physical Exam
General: Comfortable and Other (NAD)
HEENT: Normocephalic, Anicteric and Moist Mucous Membranes
Cardiovascular: S1-S2 and Regular Rhythm
Respiratory: Clear (better air movement today), Non-Labored Respirations and Other
GI: Soft, Non Distended and Non Tender
Neurology: Awake, Alert, Oriented and No Motor Deficits
Skin: Warm, Dry and Good Color
Labs/Micro/Reports
Lab Data
10/18/24 05:36
10/18/24 05:36
Microbiology
10/16/24 23:23 Sputum Gram Stain - Preliminary
10/16/24 17:05 Nasal Swab Influenza Types A & B (JAKY) - Final
Negative for Influenza A & B, NAAT
Negative results must be combined with clinical observations
and patient history.
Nucleic Acid Amplification test (NAAT)performed on the
[employer] platform.
[2024-10-18] MEDS: MUCINEX 600 MG PO ×2 (09:37→20:57)
--- NOTE | 2024-10-18 10:52 | PTCARENOTE ---
Pt for PFT. RT at bedside to escort pt down to PFT lab.
--- NOTE | 2024-10-18 14:39 | W.PN.HOSP.TC ---
Today's Communication/Plan
-
transfer tele
maintain on steroids
Assessment / Plan
Assessment / Plan
1. Acute hypoxic respiratory failure
Asthma flare up
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
-Chest x-ray reviewed and relatively clear
-COVID/flu negative
-Maintain on IV Decadron/nebulizer therapy
-CT chest PE negative for any VTE.
-Bedside PFT be done today
-Able to be weaned off of to 8 L through mid flow
2. History of Right traumatic pneumothorax
History of right clavicular fracture
-Last year patient had a fall with right clavicular fracture causing right-sided knee with
-Was transferred to [facility] trauma center and had CT tube in place
-No reported problems after discharge
3. Essential hypertension
-Maintain on olmesartan/Norvasc
4. Former smoker
-Patient have a [id number] smoking history
-will require pulm f/u and age appropriate lung cancer screening once age 51.
5. Anxiety
- maintain on prn xanax
6. Leukocytosis w/o fever
-likely from steroid use related
7. Sinus tachycardia
-episode of sinus tachycardia, 2/2 asthma flare up
Lovenox
Full code
Anticipated Discharge: > 48 hours
Subjective/Interval History
-
Date of Service: October 18, 2024
Oxygenation better, currently on 2 L oxygen through mid flow
some dry cough
Objective Data
-
Labs:
Laboratory Results
10/18/24
05:36
WBC 18.8 H
Hgb 14.3
Hct 42.6
Plt Count 259 D
Sodium 141
Potassium 4.9
Chloride 103
Carbon Dioxide 24
BUN 24 H
Creatinine 0.7
Glucose 125 H
Calcium 9.4
Vital Signs:
Vital Signs
Temp Pulse Resp BP Pulse Ox
97.6 F 102 26 114/65 96
10/18/24 07:00 10/18/24 12:00 10/18/24 12:00 10/18/24 10:00 10/18/24 12:03
I&O
10/17/24 10/18/24 10/19/24
06:59 06:59 06:59
Intake Total 200 / 200
Balance 200 / 200
Review of Systems
-
Respiratory: Reports Cough and Trouble Breathing
Cardiac: Reports No Symptoms
Abdomen/GI: Reports No Symptoms
Physical Exam
-
General: No Apparent Distress and Comfortable
HEENT: Negative Oxygen
Respiratory: Wheezes and Decreased Breath Sounds
Cardiac: Regular Rhythm and S1/S2; Negative Murmur or Rub
GI: Soft, Nontender, Nondistended and Normal Bowel Sounds
Musculoskeletal: No Edema
Neuro: Awake, Alert, Oriented, No Motor Deficits and Nonfocal/Grossly Intact
Psych: Calm
[2024-10-18] MEDS: SPIRIVA RESPIMAT 2.5 MCG INH (16:53)
[2024-10-18] MEDS: LOVENOX 40 MG SC (18:31)
[2024-10-18] MEDS: SYMBICORT 160/4.5 MCG INHALER 2 PUFF INH (19:15)
[2024-10-18] MEDS: BENICAR 5 MG PO (20:55)
[2024-10-18] MEDS: NORVASC 10 MG PO (20:56)
[2024-10-18] MEDS: LEXAPRO 10 MG PO (20:57)
--- NOTE | 2024-10-18 21:23 | PTCARENOTE ---
Pt transferred to [facility]. Report given to nurse. Pt aaox3, pleasant, denies any SOB or pain. Remains on 6LNC. NSR, ST when OOB. Pt stated he has no SOB when moving around. OOB to chair. Urinal. Took meds with water. No other issues. Pt stable when
left unit.
--- NOTE | 2024-10-18 21:55 | PTCARENOTE ---
Received pt from IMU via WC. Pt ambulated to bed without assist. AAOx3, no complaints at this time. Oriented to floor, call kilpatrick within reach
[2024-10-19] MEDS: DECADRON 4 MG IV ×4 (00:24→23:25)
[2024-10-19 03:04] VITALS: BP 102/60
[2024-10-19 07:20] VITALS: BP 114/67
[2024-10-19] MEDS: SYMBICORT 160/4.5 MCG INHALER 2 PUFF INH ×2 (07:29→19:35)
[2024-10-19] MEDS: SPIRIVA RESPIMAT 2.5 MCG 2 PUFF INH (07:29)
[2024-10-19] MEDS: VENTOLIN NEBULES 2.5 MG INH (07:33)
[2024-10-19] MEDS: MUCINEX 600 MG PO ×2 (07:53→20:56)
[2024-10-19 08:02] LABS: % Basophils 0.1 % (0-2); % Immature Granulocytes 0.6 % (0-0.5); % Lymphocytes 6.6 % (20.5-51.1); % Monocytes 4.6 % (1.7-9.3); % Neutrophils 88.1 % (42.2-75.2); Absolute Immature Granulocytes 0.1 10^3/uL (0-0.05); Absolute Lymphocytes 0.9 10^3/uL (1.2-3.4); Absolute Monocytes 0.6 10^3/uL (0.1-0.6); Absolute Neutrophils 11.5 10^3/uL (1.4-6.5); Hematocrit 41.9 % (39.0-52.0); Hemoglobin 13.6 g/dL (13.0-18.0); Mean Corp Hgb Conc. 32.5 g/dL (33.0-37.0); Mean Corpuscular Hgb 29.9 pg (27.0-31.0); Mean Corpuscular Volume 92.1 fL (80.0-94.0); Nucleated Red Blood Cells % 0 % (-); Platelet Count 246 10^3/uL (130-400); Red Blood Cell Count 4.55 10^6/uL (4.70-6.10); Red Cell Dist. Width 12.4 % (11.5-14.5)
[2024-10-19 08:30] LABS: Blood Urea Nitrogen 23 mg/dl (9-20); Calcium 9.1 mg/dl (8.4-10.2); Carbon Dioxide 25 mmol/L (22-30); Chloride 103 mmol/L (98-107); Estimated Creatinine Clearance > 125 ml/min; Glucose 112 mg/dl (70-99); Potassium 4.7 mmol/L (3.5-5.1); Sodium 139 mmol/L (135-145); eGFR > 60.00
--- NOTE | 2024-10-19 09:12 | W.PN.PUL3 ---
Today's Communication / Plan
-
Hypoxemia very slow to recover, weaned down to 4L
Check ECHO for completeness
Home o2 eval eventually
Will wean steroids down tomorrow given slow progress
Continue inhalers, OOB/IS
Assessment
-
Patient is a 43-year-old male with history of childhood asthma, smoker, hypertension, anxiety presenting to the emergency department for cough and shortness of breath. He feels this may have been trigged by a URI in the past week, with associated
sore throat, productive white sputum. He tried using his inhaler without significant improvement. Upon arrival to ER, he was notably hypoxic, requiring 3L of oxygen. Received IV Solu Medrol, neb treatments. Worsening O2 noted, and escalated to
HFNC, he is admitted to IMU. CXR clear. We are consulted for evaluation 10/17/24.
Acute hypoxic respiratory failure
Recent URI, COVID neg
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
Current smoker, 1 PPD for 25+ years, quit 1 year ago
Leukocytosis
Hypokalemia
LLL atelectasis on CT
Conditions
Childhood asthma
HTN
Anxiety
Traumatic PTX s/p fall 06/2023 s/p chest tube at [facility]
Fractured clavicle s/p repair plate/screws
Plan
Hypoxemia noted on arrival, placed on HFNC initially, has transitioned to NC
Currently on 4L and weaning down
Home O2 evaluation eventually
Prior history of lung disease is noted including including childhood asthma but this appears to be consistently active most of his life/on and off use of albuterol
Never diagnosed with any new lung disease, he generally had been using his albuterol for asthma sparingly.
Quit smoking 1 year ago and had noticed his breathing was better. Total usage was about 25 years at 1PPD. He denies family history of lung disease.
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
No prior PFTs for review
Of note, he fell last year and had a clavicle fracture and traumatic pneumothorax for which he was transferred to [facility] as a trauma eval.
He eventually had chest tube placed and underwent clavicle repair with plate/screws. His PTX resolved and chest tube was removed.
No issues since then following that discharge.
Suspect patient has AECOPD/ possible ACOS
CXR obtained indicating no acute findings, CTA neg for PE/LLL atelectasis noted
Other imaging reviewed, prior CT
He is on IV steroids, and QID nebs
PFT showing severe obstructive lung disease/moderate restriction which I reviewed with patient
Continue inhaler therapy for home as well
DLCO demonstrates adequate oxygenation and likely will not need O2
No prior ECHO results are available for review
Hypoxemia very slow to resolve, will check ECHO
Smoking history noted
Smoking cessation, he has quit 1 year ago
Will likely need LDCT screening at age 51, as he still will be within the 15 year quit period
Will need outpatient pulmonary evaluation in our office for PFTs and 6MWT
Reviewed with patient
We will arrange at time of discharge
Diagnostic Data
Chest X-Ray: 10/16/24-1. Mild bilateral lung hyperinflation consistent with reactive airways disease (asthma).
2. No radiographic evidence for pneumonia.
3. Previous ORIF of a right midclavicular fracture.
CT Scan: CAP 07/10/23- 1. Moderate to large right hydropneumothorax.
2. Comminuted fracture of the right clavicle.
3. Nondisplaced lateral right third, fourth and fifth rib fractures.
4. No acute process in the abdomen or pelvis.
CT Chest 10/17/24- 1. No CTA evidence for an acute pulmonary thromboembolism.
2. Lobar collapse/atelectasis involving the majority of the left lower lobe.
Echo:
PFT's: FEV1 1.75 L 45%, FVC 3.07 L 64%, ratio 57. Positive BD response in FVC and FEV1. TLC 4.37 L 65%, DLCO 62% -severe obstruction, moderate restriction, mild diffusion impairment
Reports and relevant images were personally reviewed.
Total time spent on this encounter __50__ includes review of history, physical exam, medications, laboratory data, personal review of imaging, extensive review of outpatient records, discussion with care team and respiratory therapy.
Subjective Data
-
Date of Service:
Date of Service: October 19, 2024
Chief Complaint: Pulmonary Follow Up
Subjective:
Improving but slowly
Weaned down to 4L
No new complaints
Objective Data
Data Reviewed
Vital Signs / I&O / Oxygen:
Vital Signs
Temp Pulse Resp BP Pulse Ox
97.8 F 91 20 114/67 94
10/19/24 07:20 10/19/24 07:36 10/19/24 07:36 10/19/24 07:20 10/19/24 07:36
SaO2 94
Nasal Cannula flow liters per 6
minute
Physical Exam
General: Comfortable and Other (NAD)
HEENT: Normocephalic, Anicteric and Moist Mucous Membranes
Cardiovascular: S1-S2 and Regular Rhythm
Respiratory: Clear (better air movement today), Non-Labored Respirations and Other
GI: Soft, Non Distended and Non Tender
Neurology: Awake, Alert, Oriented and No Motor Deficits
Skin: Warm, Dry and Good Color
Labs/Micro/Reports
Lab Data
10/19/24 07:03
10/19/24 07:03
Microbiology
10/16/24 23:23 Sputum Respiratory Culture - Preliminary
Usual Respiratory Kasie
10/16/24 23:23 Sputum Gram Stain - Preliminary
10/16/24 17:05 Nasal Swab Influenza Types A & B (JAKY) - Final
Negative for Influenza A & B, NAAT
Negative results must be combined with clinical observations
and patient history.
Nucleic Acid Amplification test (NAAT)performed on the
[employer] platform.
[2024-10-19 11:14] VITALS: BP 123/79
--- NOTE | 2024-10-19 12:55 | PTCARENOTE ---
Patient with cough with bloody/clear sputum production. Patient receiving respiratory treatments and humidified oxygen. Denies complaints at this time.
--- NOTE | 2024-10-19 13:21 | W.PN.HOSP.TC ---
Today's Communication/Plan
-
Continue steroids
Continue weaning off oxygen as possible
Assessment / Plan
Assessment / Plan
1. Acute hypoxic respiratory failure
Asthma flare up
-Have history of asthma and smoking, no formal PFT in the past, does not see any bed control specialist
-Chest x-ray reviewed and relatively clear
-COVID/flu negative
-Maintain on IV Decadron/nebulizer therapy
-CT chest PE negative for any VTE.
-Bedside PFT reviewed - FEV1 45% FEV1/FVC 57% of predicted, RV/TLC 130, DLco 62%
-Able to be weaned off of to 6 L through mid flow
2. History of Right traumatic pneumothorax
History of right clavicular fracture
-Last year patient had a fall with right clavicular fracture causing right-sided knee with
-Was transferred to [facility] trauma center and had CT tube in place
-No reported problems after discharge
3. Essential hypertension
-Maintain on olmesartan/Norvasc
4. Former smoker
-Patient have a [id number] smoking history
-will require pulm f/u and age appropriate lung cancer screening once age 51.
5. Anxiety
- maintain on prn xanax
6. Leukocytosis w/o fever
-likely from steroid use related
7. Sinus tachycardia
-episode of sinus tachycardia, 2/2 asthma flare up
Lovenox
Full code
Anticipated Discharge: > 48 hours
Subjective/Interval History
-
Date of Service: October 19, 2024
Oxygen requirement coming down slowly, currently on 6 L through mid flow
Continues to have some cough, no major phlegm production
Objective Data
-
Labs:
Laboratory Results
10/19/24
07:03
WBC 13.0 H
Hgb 13.6
Hct 41.9
Plt Count 246
Sodium 139
Potassium 4.7
Chloride 103
Carbon Dioxide 25
BUN 23 H
Creatinine 0.7
Glucose 112 H
Calcium 9.1
Vital Signs:
Vital Signs
Temp Pulse Resp BP Pulse Ox
98.4 F 93 18 123/79 95
10/19/24 11:14 10/19/24 11:14 10/19/24 11:14 10/19/24 11:14 10/19/24 11:38
Review of Systems
-
Respiratory: Reports No Symptoms
Cardiac: Reports No Symptoms
Abdomen/GI: Reports No Symptoms
Physical Exam
-
General: No Apparent Distress and Comfortable
HEENT: Negative Oxygen
Respiratory: Wheezes and Decreased Breath Sounds
Cardiac: Regular Rhythm and S1/S2; Negative Murmur or Rub
GI: Soft, Nontender, Nondistended and Normal Bowel Sounds
Musculoskeletal: No Edema
Neuro: Awake, Alert, Oriented, No Motor Deficits and Nonfocal/Grossly Intact
Psych: Calm
[2024-10-19 14:46] VITALS: BP 136/79
[2024-10-19] MEDS: LOVENOX 40 MG SC (17:49)
[2024-10-19 19:58] VITALS: BP 127/78
[2024-10-19] MEDS: NORVASC 10 MG PO (20:55)
[2024-10-19] MEDS: BENICAR 5 MG PO (20:56)
[2024-10-19] MEDS: LEXAPRO 10 MG PO (20:56)
[2024-10-19 23:32] VITALS: BP 125/78
[2024-10-20 03:20] VITALS: BP 111/73
[2024-10-20 07:11] VITALS: BP 113/73
[2024-10-20] MEDS: SYMBICORT 160/4.5 MCG INHALER 2 PUFF INH (07:30)
[2024-10-20] MEDS: SPIRIVA RESPIMAT 2.5 MCG 2 PUFF INH (07:30)
[2024-10-20] MEDS: ProAIR HFA INHALER 2 PUFF INH (07:32)
[2024-10-20 08:04] LABS: % Basophils 0.2 % (0-2); % Immature Granulocytes 2.6 % (0-0.5); % Lymphocytes 12.2 % (20.5-51.1); % Monocytes 5.6 % (1.7-9.3); % Neutrophils 79.4 % (42.2-75.2); Absolute Immature Granulocytes 0.3 10^3/uL (0-0.05); Absolute Lymphocytes 1.3 10^3/uL (1.2-3.4); Absolute Monocytes 0.6 10^3/uL (0.1-0.6); Absolute Neutrophils 8.4 10^3/uL (1.4-6.5); Hemoglobin 14.9 g/dL (13.0-18.0); Mean Corp Hgb Conc. 33.9 g/dL (33.0-37.0); Mean Corpuscular Hgb 30.4 pg (27.0-31.0); Mean Corpuscular Volume 89.8 fL (80.0-94.0); Mean Platelet Volume 10.5 fL (7.4-10.4); Nucleated Red Blood Cells % 0 % (-); Platelet Count 245 10^3/uL (130-400); White Blood Cell Count 10.6 10^3/uL (4.8-10.8)
[2024-10-20] MEDS: DECADRON 4 MG IV (08:19)
[2024-10-20] MEDS: FLUSH (NSS) 1 FLUSH IV (08:20)
[2024-10-20] MEDS: MUCINEX 600 MG PO (08:20)
--- NOTE | 2024-10-20 11:10 | W.PN.PUL3 ---
Today's Communication / Plan
-
Doing well, weaned to RA, no new complaints-ready to go home
Transition IV steroids to PO, taper at discharge
Home O2 eval
OP Pulm FU recommended, 2-3 weeks
Discharge planning per team
Assessment
-
Patient is a 43-year-old male with history of childhood asthma, smoker, hypertension, anxiety presenting to the emergency department for cough and shortness of breath. He feels this may have been trigged by a URI in the past week, with associated
sore throat, productive white sputum. He tried using his inhaler without significant improvement. Upon arrival to ER, he was notably hypoxic, requiring 3L of oxygen. Received IV Solu Medrol, neb treatments. Worsening O2 noted, and escalated to
HFNC, he is admitted to IMU. CXR clear. We are consulted for evaluation 10/17/24.
Acute hypoxic respiratory failure
Recent URI, COVID neg
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
Current smoker, 1 PPD for 25+ years, quit 1 year ago
Leukocytosis
Hypokalemia
LLL atelectasis on CT
Conditions
Childhood asthma
HTN
Anxiety
Traumatic PTX s/p fall 06/2023 s/p chest tube at [facility]
Fractured clavicle s/p repair plate/screws
Plan
Hypoxemia noted on arrival, placed on HFNC initially, has transitioned to NC
Able to wean to RA today
Home O2 evaluation today
Prior history of lung disease is noted including including childhood asthma but this appears to be consistently active most of his life/on and off use of albuterol
Never diagnosed with any new lung disease, he generally had been using his albuterol for asthma sparingly.
Quit smoking 1 year ago and had noticed his breathing was better. Total usage was about 25 years at 1PPD. He denies family history of lung disease.
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
No prior PFTs for review
Of note, he fell last year and had a clavicle fracture and traumatic pneumothorax for which he was transferred to [facility] as a trauma eval.
He eventually had chest tube placed and underwent clavicle repair with plate/screws. His PTX resolved and chest tube was removed.
No issues since then following that discharge.
Suspect patient has AECOPD/ possible ACOS
CXR obtained indicating no acute findings, CTA neg for PE/LLL atelectasis noted
Other imaging reviewed, prior CT
He is on IV steroids, and QID nebs
Transition today to PO prednisone with taper
PFT showing severe obstructive lung disease/moderate restriction which I reviewed with patient
Continue inhaler therapy for home as well
DLCO demonstrates adequate oxygenation and likely will not need O2
Discussed continuation of inhalers at home
No prior ECHO results are available for review
Hypoxemia very slow to resolve, will check -- ECHO reviewed, stable findings, hyperdynamic EF
Smoking history noted
Smoking cessation, he has quit 1 year ago
Will likely need LDCT screening at age 51, as he still will be within the 15 year quit period
Will need outpatient pulmonary evaluation in our office for PFTs and 6MWT
Reviewed with patient
Discharge planning per team
Diagnostic Data
Chest X-Ray: 10/16/24-1. Mild bilateral lung hyperinflation consistent with reactive airways disease (asthma).
2. No radiographic evidence for pneumonia.
3. Previous ORIF of a right midclavicular fracture.
CT Scan: CAP 07/10/23- 1. Moderate to large right hydropneumothorax.
2. Comminuted fracture of the right clavicle.
3. Nondisplaced lateral right third, fourth and fifth rib fractures.
4. No acute process in the abdomen or pelvis.
CT Chest 10/17/24- 1. No CTA evidence for an acute pulmonary thromboembolism.
2. Lobar collapse/atelectasis involving the majority of the left lower lobe.
Echo:
PFT's: FEV1 1.75 L 45%, FVC 3.07 L 64%, ratio 57. Positive BD response in FVC and FEV1. TLC 4.37 L 65%, DLCO 62% -severe obstruction, moderate restriction, mild diffusion impairment
Reports and relevant images were personally reviewed.
Total time spent on this encounter __50__ includes review of history, physical exam, medications, laboratory data, personal review of imaging, extensive review of outpatient records, discussion with care team and respiratory therapy.
Subjective Data
-
Date of Service:
Date of Service: October 20, 2024
Chief Complaint: Pulmonary Follow Up
Subjective:
Doing well today, now off O2, stable on RA
Doing well, ready to go home
Objective Data
Data Reviewed
Vital Signs / I&O / Oxygen:
Vital Signs
Temp Pulse Resp BP Pulse Ox
97.7 F 72 16 113/73 94
10/20/24 07:11 10/20/24 07:37 10/20/24 07:37 10/20/24 07:11 10/20/24 09:05
SaO2 94
Nasal Cannula flow liters per 2
minute
Physical Exam
General: Comfortable and Other (NAD)
HEENT: Normocephalic, Anicteric and Moist Mucous Membranes
Cardiovascular: S1-S2 and Regular Rhythm
Respiratory: Clear (better air movement today) and Non-Labored Respirations
GI: Soft, Non Distended and Non Tender
Neurology: Awake, Alert, Oriented and No Motor Deficits
Skin: Warm, Dry and Good Color
Labs/Micro/Reports
Lab Data
10/20/24 07:48
10/19/24 07:03
Microbiology
10/16/24 23:23 Sputum Respiratory Culture - Final
Usual Respiratory Kasie
10/16/24 23:23 Sputum Gram Stain - Final
[2024-10-20 11:29] VITALS: BP 127/80
--- NOTE | 2024-10-20 14:46 | W.PN.HOSP.TC ---
Today's Communication/Plan
-
d/c home on prednisone taper/duoneb inh
Assessment / Plan
Assessment / Plan
1. Acute hypoxic respiratory failure - resolved
Asthma flare up
-Have history of asthma and smoking, no formal PFT in the past, does not see any waste removalist
-Chest x-ray reviewed and relatively clear
-COVID/flu negative
-Maintain on IV Decadron/nebulizer therapy
-CT chest PE negative for any VTE.
-Bedside PFT reviewed - FEV1 45% FEV1/FVC 57% of predicted, RV/TLC 130, DLco 62%
-off of o2 today
2. History of Right traumatic pneumothorax
History of right clavicular fracture
-Last year patient had a fall with right clavicular fracture causing right-sided knee with
-Was transferred to [facility] trauma center and had CT tube in place
-No reported problems after discharge
3. Essential hypertension
-Maintain on olmesartan/Norvasc
4. Former smoker
-Patient have a [id number] smoking history
-will require pulm f/u and age appropriate lung cancer screening once age 51.
5. Anxiety
- maintain on prn xanax
6. Leukocytosis w/o fever
-likely from steroid use related
7. Sinus tachycardia
-episode of sinus tachycardia, 2/2 asthma flare up
Lovenox
Full code
Anticipated Discharge: Today
Subjective/Interval History
-
Date of Service: October 20, 2024
off of o2
no new issues overnight
Objective Data
-
Labs:
Laboratory Results
10/20/24
07:48
WBC 10.6
Hgb 14.9
Hct 44.0
Plt Count 245
Vital Signs:
Vital Signs
Temp Pulse Resp BP Pulse Ox
97.6 F 84 20 127/80 93
10/20/24 11:29 10/20/24 11:29 10/20/24 11:29 10/20/24 11:29 10/20/24 11:29
Review of Systems
-
Respiratory: Reports No Symptoms
Cardiac: Reports No Symptoms
Abdomen/GI: Reports No Symptoms
Physical Exam
-
General: No Apparent Distress and Comfortable
HEENT: Negative Oxygen
Respiratory: Clear to Auscultation
Cardiac: Regular Rhythm and S1/S2; Negative Murmur or Rub
GI: Soft, Nontender, Nondistended and Normal Bowel Sounds
Musculoskeletal: No Edema
Neuro: Awake, Alert, Oriented, No Motor Deficits and Nonfocal/Grossly Intact
Psych: Calm
[2024-10-20 15:04] VITALS: BP 139/84
--- NOTE | 2024-10-20 16:45 | W.DCSUMMARY ---
Discharge Summary
Discharge Data
Date of Admission: 10/16/24
Date of Discharge: 10/20/24
-
Pending Results: No
Hospital Course
Discharging Physician : Dr Venu Guerrero
Disposition : Home
Primary care physician : Dr Hai Mcdaniel
Principal Discharge diagnosis :
Asthma exacerbation
Acute hypoxic respiratory failure
Sinus tachycardia
Chronic Discharge diagnosis :
History right traumatic pneumothorax
History of right clavicular fracture requiring surgical fixation
Essential hypertension
Former smoker
Anxiety
Hospital Course :
Patient is a 43-year-old male with mentioned past medical history came to ER with new onset of shortness of breath and cough. Patient was having some sore throat/upper respiratory symptoms before starting having shortness of breath. Patient have
history of asthma and has rescue inhalers at home, which did not help with the symptoms. In ER rapid evaluation patient noted to having likely asthma flareup and was requiring oxygen through mid flow/high flow. A chest x-ray did not show any
underlying pneumonia. Patient was started on high-dose IV steroids and was admitted to intermediate care unit for further management. A CT chest PE was done which ruled out any VTE. Pulmonology was involved in care and did a bedside pulmonary
function test showing severe obstruction and mild diffusion impairment. With empiric steroids patient's symptoms improved within next 72 hours. Patient was able to be weaned off of oxygen. Patient was discharged home with tapering course of oral
steroids and nebulizer therapy. Patient to follow-up with primary care physician and pulmonology in office.
Important imaging findings :
None
Procedure findings :
None
Discharge Plan
-
Patient Disposition: Home (Routine Discharge)
Discharge Diagnosis/Procedures: Asthma flareup
Condition: Fair
Diet: Regular
Activity: As tolerated
Driving Restrictions: As prior to admission
Bathing Restrictions: OK to Shower
Referrals:
Hai Mcdaniel MD [Family Provider] - in one week
Tessie,Samara Vidal, DO [Active] - in two to three weeks (w/ PFTs)
Prescriptions:
New
budesonide [Pulmicort] 1 mg/2 mL suspension for nebulization
1 mg inhalation BID Qty: 60 2RF
albuterol sulfate 90 mcg/actuation HFA aerosol inhaler
2 puff inhalation Q6H PRN (Reason: shortness of breath or wheezing) Qty: 8.5 0RF
prednisone 10 mg Tablet
See Rx Instructions .ROUTE .COMPLEX Qty: 30 0RF
Rx Instructions:
Take By Mouth:
40 mg daily x3 days, 30 mg daily x3 days,
20 mg daily x3 days, 10 mg daily x3 days.
ipratropium-albuterol 0.5 mg-3 mg(2.5 mg base)/3 mL solution for nebulization
3 ml inhalation Q6H PRN (Reason: shortness breath/wheezing) Qty: 180 2RF
Continued
alprazolam 0.25 mg Tablet
0.25 mg PO TIDPRN PRN (Reason: anxiety)
amlodipine 10 mg Tablet
10 mg PO HS
olmesartan 5 mg Tablet
5 mg PO HS
escitalopram oxalate 10 mg Tablet
10 mg PO HS
Discontinued
albuterol sulfate 90 mcg/actuation Hfa Aerosol Inhaler
2 puff INHALATION R Q4HPRN PRN (Reason: sob)
Discharge Orders:
Discharge Patient (As Directed); Ordered 10/20/24
Ordered By: Venu Guerrero
Discharge Date and Time
Discharge Date/Time: 10/20/24 15:08
Print Language: COMORAN
--- NOTE | 2024-10-20 17:09 | CM ---
JAIME met with Timothy earlier today to determine if O2 is needed. No need for home O2, he is discharged on a prednisone taper and duoneb inhaler.
Pt discharged to home with no discharge planning needs.
== END 2024-10-20 15:08 | disposition home or self-care (01) | DRG 190 ==
LOC: 4 EAST ACU 20:22
PROVIDERS: Registered Nurse; ADMITTING PHYSICIAN Hospitalist; ATTENDING PHYSICIAN Hospitalist; CONSULT PHYSICIAN Internal Medicine; EMERGENCY PHYSICIAN Student in an Organized Health Care Education/Training Program; FAMILY PHYSICIAN Family Medicine
DX: J44.1 Chronic obstructive pulmonary disease with (acute) exacerbation (principal); J96.01 Acute respiratory failure with hypoxia; J45.901 Unspecified asthma with (acute) exacerbation; F17.200 Nicotine dependence, unspecified, uncomplicated; I10 Essential (primary) hypertension; F41.9 Anxiety disorder, unspecified; Z11.52 Encounter for screening for COVID-19
CPT/HCPCS: 94727; 94729; 71046; 71275; 80048; 80053; 83735; 85025; 87070; 87205; 87502; 87811; 93005; 93306; 94060; 94640; 96365; 96375; 99285; Q9967